=== PATIENT | male | born 1945 | race Caucasian/White ===

== ENCOUNTER 2017-01-01 09:56 | Day surgery (SDC) | payer OTHER ==
[~2017-01-01] VITALS: Ht 177.8 cm; Wt 99.8 kg
[~2017-01-01 09:56] MED LIST: AMOXICILLIN500 MG PO; ASPIR-TRIN325 MG PO; Aleve PO; Ambien PO; BENEFIBER1 EACH PO; CARDIZEM30 MG PO; CARTIA XT240 MG PO; CPAP; Cipro PO; DESYREL100 MG PO; DICYCLOMINE HCL20 MG PO; DILAUDID2 MG PO; ELIQUIS5 MG PO; ESSENTIAL ENZYMES PO; FLAGYL500 MG PO; FLONASE16 GM BOTH NARES; Flomax PO; IMODIUM2 MG PO; KEFLEX500 MG PO; LIORESAL10 MG PO; LISINOPRIL5 MG PO; LORAZEPAM1 MG PO; Lipitor PO; METFORMIN HCL1000 MG PO; METFORMIN HCL500 MG PO; MYSOLINE250 MG PO; OMEPRAZOLE20 M2 PO; PRILOSEC40 MG PO; Proscar PO; SIMVASTATIN20 MG PO; VITAMIN D400 UNI1 PO; VITAMIN D400 UNIT PO; VITAMIN D50000 UNI1 PO; Vitamin D PO; ZESTRIL,PRINIVIL5 MG PO; ZOCOR10 M1 PO
[2017-01-01 10:35] VITALS: BP 132/58
[2017-01-01 11:03] LABS: ANION GAP 11 MEQ/L (2-14); CHLORIDE 103 MEQ/L (99-109); POTASSIUM 4.1 MEQ/L (3.7-5.4); SAMPLE HEMOLYSIS CHECK 0; SAMPLE ICTERIC CHECK 0; SAMPLE LIPEMIA CHECK 0; SODIUM 138 MEQ/L (136-147)
[2017-01-01 11:08] LABS: GFR ESTIMATE (CALCULATED) > 59 mL/min/; GLUCOSE 117 mg/dL (70-99); UREA NITROGEN (BUN) 24 mg/dL (9-23)
[2017-01-01 14:00] LABS: POINT-OF-CARE METER ID UU13113675
[2017-01-01 15:00] VITALS: BP 117/57
[2017-01-01 15:51] VITALS: BP 133/63
== END 2017-01-01 16:04 | disposition home or self-care (01) ==
LOC: SDC 09:56
PROVIDERS: Internal Medicine
DX: H35.342 Macular cyst, hole, or pseudohole, left eye (principal); H33.002 Unspecified retinal detachment with retinal break, left eye; I48.0 Paroxysmal atrial fibrillation; G91.2 (Idiopathic) normal pressure hydrocephalus; I11.9 Hypertensive heart disease without heart failure; E78.2 Mixed hyperlipidemia; G47.33 Obstructive sleep apnea (adult) (pediatric); E11.9 Type 2 diabetes mellitus without complications; E66.9 Obesity, unspecified; Z68.32 Body mass index [BMI] 32.0-32.9, adult; Z79.01 Long term (current) use of anticoagulants
CPT/HCPCS: 80048; 82948; J0690; J3010; J3300

== ENCOUNTER 2017-08-25 02:19 | Observation (INO) | payer OTHER ==
[~2017-08-25] VITALS: Ht 177.8 cm; Wt 106.5 kg
[2017-08-25 02:56] LABS: ADD MIUA? YES; BILIRUBIN NEGATIVE; BLOOD NEGATIVE; COLOR YELLOW ((YELLOW)); GLUCOSE (STRIP) NEGATIVE; KETONES NEGATIVE; LEUKOCYTES TRACE; NITRITE NEGATIVE; PROTEIN (STRIP) 30; SPECIFIC GRAVITY 1.021 (1.000-1.030)
[2017-08-25 02:57] LABS: HEMATOCRIT 43.2 % (38.0-50.0); MCH 29.1 PG (29.0-34.0); MCHC 32.9 G/DL (30.0-36.0); MCV 88.5 FL (86-99); MEAN PLAT.VOLUME 10.6 uM^3 (9.0-12.4); PLATELET COUNT 243 K/uL (156-360); RBC DIS.WIDTH-CV 13.5 % (11.8-14.6); RBC DIS.WIDTH-SD 43.7 % (39-53); RED BLOOD COUNT 4.88 M/uL (4.00-5.50); WHITE BLOOD COUNT 10.6 K/uL (4.1-10.2)
[2017-08-25 03:10] LABS: BACTERIA RARE /HPF; EPITHELIAL CELLS RARE /HPF; MUCUS NONE SEEN /LPF; RED BLOOD CELLS 0-5 /HPF (0-5); UCUL ADDED? NO; WHITE BLOOD CELLS 0-5 /HPF (0-5)
[2017-08-25 03:13] LABS: CHLORIDE 108 mEq/L (99-109); POTASSIUM 3.7 mEq/L (3.7-5.4); SODIUM 146 mEq/L (136-147)
[2017-08-25 03:15] LABS: GLUCOSE 144 mg/dL (70-99)
[2017-08-25 03:16] LABS: ANION GAP 13 MEQ/L (2-14)
[2017-08-25 03:17] LABS: TOTAL BILIRUBIN 0.5 mg/dL (0.0-1.0); TROP-I INTERPRETATION NEGATIVE; TROPONIN-I < 0.01 ng/mL (0.0-0.30)
[2017-08-25 03:18] LABS: ALKALINE PHOSPHATASE 92 IU/L (3-129)
[2017-08-25 03:19] LABS: GFR ESTIMATE (CALCULATED) > 59 mL/min/
[2017-08-25 03:20] LABS: UREA NITROGEN (BUN) 18 mg/dL (9-23)
[2017-08-25 03:22] LABS: LIPASE 29 U/L (1.0-51.0)
[2017-08-25] MEDS ORDERED: LIPITOR20 MG PO (05:08)
[2017-08-25] MEDS ORDERED: PAROXETINE HCL20 MG PO (05:08)
[2017-08-25] MEDS ORDERED: CARDIZEM CD,CA240 MG PO (05:08)
[2017-08-25 07:25] VITALS: BP 137/87
[2017-08-25 10:23] LABS: TROP-I INTERPRETATION NEGATIVE; TROPONIN-I < 0.01 ng/mL (0.0-0.30)
[2017-08-25 10:27] LABS: HDL CHOLESTEROL 34 MG/DL (Desirable>=40); LDL CHOLESTEROL 36 mg/dL (Desirable<100); NON-HDL CHOLESTEROL 49 mg/dL (Desirable<160); TOTAL CHOLESTEROL 83 mg/dL (Desirable<200); TRIGLYCERIDES 65 MG/DL (Normal: <150)
[2017-08-25 13:14] VITALS: BP 157/76
[2017-08-25 16:02] LABS: TROP-I INTERPRETATION NEGATIVE; TROPONIN-I < 0.01 ng/mL (0.0-0.30)
[2017-08-25 17:51] LABS: POINT-OF-CARE METER ID UU13113831
== END 2017-08-25 18:24 | disposition home or self-care (01) ==
LOC: EME 02:19 → EDOF 05:16 → ENRESERV 05:20 → 5WEST 07:12
PROVIDERS: Internal Medicine; Physician Assistant; Physician Assistant Medical
DX: R10.13 Epigastric pain (principal); I48.0 Paroxysmal atrial fibrillation; N40.1 Benign prostatic hyperplasia with lower urinary tract symptoms; N13.8 Other obstructive and reflux uropathy; T84.54XD Infection and inflammatory reaction due to internal left knee prosthesis, subsequent encounter; Y83.1 Surgical operation with implant of artificial internal device as the cause of abnormal reaction of the patient, or of later complication, without mention of misadventure at the time of the procedure; I10 Essential (primary) hypertension; E78.5 Hyperlipidemia, unspecified; E11.9 Type 2 diabetes mellitus without complications; K21.9 Gastro-esophageal reflux disease without esophagitis; L40.50 Arthropathic psoriasis, unspecified; G91.2 (Idiopathic) normal pressure hydrocephalus; R13.10 Dysphagia, unspecified; E66.9 Obesity, unspecified; Z68.33 Body mass index [BMI] 33.0-33.9, adult; M19.90 Unspecified osteoarthritis, unspecified site; K58.1 Irritable bowel syndrome with constipation; E56.0 Deficiency of vitamin E; G47.33 Obstructive sleep apnea (adult) (pediatric); F41.0 Panic disorder [episodic paroxysmal anxiety]; F32.9 Major depressive disorder, single episode, unspecified; F03.90 Unspecified dementia, unspecified severity, without behavioral disturbance, psychotic disturbance, mood disturbance, and anxiety; Z91.19 Patient's noncompliance with other medical treatment and regimen; Z79.01 Long term (current) use of anticoagulants; Z79.84 Long term (current) use of oral hypoglycemic drugs; Z98.2 Presence of cerebrospinal fluid drainage device; Z87.891 Personal history of nicotine dependence
CPT/HCPCS: 71020; 74177; 80053; 80061; 81003; 82948; 83690; 84484; 85027; 93005; 99281; 99285; G0378; J2405; J7040

== ENCOUNTER 2017-11-26 21:56 | Inpatient (IN) | payer OTHER ==
[~2017-11-26] VITALS: Ht 177.8 cm; Wt 103.2 kg
[~2017-11-26 21:56] MED LIST changes: +CARDIZEM CD,CA240 MG PO; +DESYREL 150 MG150 MG PO; -DESYREL100 MG PO; +LIPITOR20 MG PO; +PAROXETINE HCL20 MG PO
[2017-11-26 23:39] LABS: HEMATOCRIT 47.5 % (38.0-50.0); MCH 30.1 PG (29.0-34.0); MCHC 33.7 G/DL (30.0-36.0); MCV 89.5 FL (86-99); PLATELET COUNT 254 K/uL (156-360); RBC DIS.WIDTH-CV 12.6 % (11.8-14.6); RBC DIS.WIDTH-SD 41.2 % (39-53); RED BLOOD COUNT 5.31 M/uL (4.00-5.50); WHITE BLOOD COUNT 8.1 K/uL (4.1-10.2)
[2017-11-26 23:50] LABS: CHLORIDE 103 mEq/L (99-109); POTASSIUM 3.9 mEq/L (3.7-5.4); SODIUM 135 mEq/L (136-147)
[2017-11-26 23:52] LABS: GLUCOSE 134 mg/dL (70-99)
[2017-11-26 23:56] LABS: GFR ESTIMATE (CALCULATED) > 59 mL/min/ (58.99-99999)
[2017-11-26 23:57] LABS: UREA NITROGEN (BUN) 20 mg/dL (9-23)
[2017-11-27 00:14] LABS: BASOPHIL (%) 0.5 % (0-1); EOSINOPHIL (%) 0.7 % (0-5); EOSINOPHIL COUNT 0.1 K/uL (0-0.3); HEMATOCRIT 48.6 % (38.0-50.0); HEMOGLOBIN 16.1 G/DL (12.5-16.6); IMMATURE GRANULOCYTE (%) 0.4 % (0.0-0.7); LYMPHOCYTE (%) 10.9 % (15-42); LYMPHOCYTE COUNT 0.9 K/uL (1.0-2.8); MCH 29.5 PG (29.0-34.0); MCHC 33.1 G/DL (30.0-36.0); MCV 89.2 FL (86-99); MONOCYTE (%) 11.6 % (3-12); MONOCYTE COUNT 0.9 K/uL (0-0.8); NEUTROPHIL (%) 75.9 % (45-76); NEUTROPHIL COUNT 6.2 K/uL (1.8-6.4); RBC DIS.WIDTH-CV 12.6 % (11.8-14.6); RBC DIS.WIDTH-SD 41.5 % (39-53); RED BLOOD COUNT 5.45 M/uL (4.00-5.50); WHITE BLOOD COUNT 8.1 K/uL (4.1-10.2)
[2017-11-27 01:00] LABS: PLAT.SUFFICIENCY ADEQUATE; PLATELET COUNT 209 K/uL (156-360)
[2017-11-27 01:05] LABS: TROP-I INTERPRETATION NEGATIVE; TROPONIN-I < 0.01 ng/mL (0.0-0.30)
[2017-11-27 02:51] LABS: APPEARANCE CLEAR ((CLEAR)); BILIRUBIN NEGATIVE; BLOOD SMALL; COLOR YELLOW ((YELLOW)); GLUCOSE (STRIP) NEGATIVE; KETONES NEGATIVE; LEUKOCYTES NEGATIVE; NITRITE NEGATIVE; PROTEIN (STRIP) 100; SPECIFIC GRAVITY 1.023 (1.000-1.030); UROBILINOGEN 0.2 MG/DL (0.2-1.0)
[2017-11-27 02:54] LABS: BACTERIA NONE SEEN /HPF; EPITHELIAL CELLS NONE SEEN /HPF; MUCUS TRACE /LPF; RED BLOOD CELLS 0-5 /HPF (0-5); UCUL ADDED? NO; WHITE BLOOD CELLS 0-5 /HPF (0-5)
[2017-11-27] MEDS ORDERED: ATORVASTATIN CA20 MG PO (09:20)
[2017-11-27] MEDS ORDERED: AUGMENTIN875 MG PO (09:22)
[2017-11-27] MEDS ORDERED: AMOX TR-K CLV1 EAC4 PO (09:23)
[2017-11-27] MEDS ORDERED: CODEINE-GUAIFE120 ML PO (09:23)
[2017-11-27] MEDS ORDERED: ONDANSETRON HCL4 MG PO (09:24)
[2017-11-27] MEDS ORDERED: VENTOLIN HFA18 GM IH (09:24)
[2017-11-27] MEDS ORDERED: TRIAMCINOLONE A15 GM TP (09:25)
[2017-11-27] MEDS ORDERED: ALEVE220 MG PO (09:26)
[2017-11-27 12:27] LABS: TROP-I INTERPRETATION NEGATIVE; TROPONIN-I < 0.01 ng/mL (0.0-0.30)
[2017-11-27 15:45] VITALS: BP 122/72
[2017-11-27 19:10] VITALS: BP 116/69
[2017-11-27 23:50] VITALS: BP 114/63
[2017-11-28 04:45] VITALS: BP 94/56
[2017-11-28 08:00] VITALS: BP 106/64
[2017-11-28 12:56] VITALS: BP 122/59
[2017-11-28 15:56] VITALS: BP 93/52
[2017-11-28 20:12] VITALS: BP 127/65
[2017-11-29 00:42] VITALS: BP 97/56
[2017-11-29 04:45] VITALS: BP 100/52
[2017-11-29 09:00] VITALS: BP 120/73
[2017-11-29 09:11] LABS: D-DIMER ELISA < 150.00 ng/mLDDU (<230)
[2017-11-29 12:00] VITALS: BP 126/71
[2017-11-29 16:00] VITALS: BP 135/66
[2017-11-29 20:45] VITALS: BP 131/78
[2017-11-30] VITALS: BP 120/78
[2017-11-30 03:23] VITALS: BP 121/78
[2017-11-30 08:17] VITALS: BP 154/78
[2017-11-30 11:45] VITALS: BP 127/72
[2017-11-30 16:45] VITALS: BP 106/53
[2017-11-30 19:26] VITALS: BP 134/88
[2017-12-01 02:04] VITALS: BP 118/78
[2017-12-01 02:05] VITALS: BP 122/78
[2017-12-01 08:01] VITALS: BP 134/84
[2017-12-01 12:17] VITALS: BP 129/81
[2017-12-01 15:46] VITALS: BP 137/84
[2017-12-01 19:10] VITALS: BP 140/79
[2017-12-02 00:20] VITALS: BP 114/65
[2017-12-02 04:30] VITALS: BP 111/65
[2017-12-02 07:39] VITALS: BP 139/86
[2017-12-02] MEDS ORDERED: PREDNISONE20 MG PO (10:09)
[2017-12-02] MEDS ORDERED: ATIVAN0.5 MG PO (10:09)
== END 2017-12-02 12:51 | disposition home or self-care (01) | DRG 308 ==
LOC: EME 21:56 → 4EAST 11-27 06:33 → EDOF 11-27 06:33 → CANRESERV 11-27 06:42 → ENRESERV 11-27 06:42 → 4EAST 11-27 14:32 → ENRESERV 11-28 20:17 → CANRESERV 11-28 20:44 → 4EAST 12-02 12:51
PROVIDERS: Emergency Medicine; Internal Medicine
DX: I48.0 Paroxysmal atrial fibrillation (principal); I48.2 Chronic atrial fibrillation; J10.08 Influenza due to other identified influenza virus with other specified pneumonia; E86.0 Dehydration; G91.2 (Idiopathic) normal pressure hydrocephalus; J20.9 Acute bronchitis, unspecified; J44.0 Chronic obstructive pulmonary disease with (acute) lower respiratory infection; J44.1 Chronic obstructive pulmonary disease with (acute) exacerbation; E66.9 Obesity, unspecified; R09.02 Hypoxemia; E78.5 Hyperlipidemia, unspecified; F41.9 Anxiety disorder, unspecified; I10 Essential (primary) hypertension; K21.9 Gastro-esophageal reflux disease without esophagitis; E11.9 Type 2 diabetes mellitus without complications; G47.33 Obstructive sleep apnea (adult) (pediatric); F32.9 Major depressive disorder, single episode, unspecified; F60.9 Personality disorder, unspecified; H35.30 Unspecified macular degeneration; Z88.6 Allergy status to analgesic agent; Z91.013 Allergy to seafood; Z68.33 Body mass index [BMI] 33.0-33.9, adult; Z82.49 Family history of ischemic heart disease and other diseases of the circulatory system; Z98.2 Presence of cerebrospinal fluid drainage device; Z87.891 Personal history of nicotine dependence; Z80.7 Family history of other malignant neoplasms of lymphoid, hematopoietic and related tissues
CPT/HCPCS: 71046; 80048; 81003; 82948; 83605; 83880; 84484; 85025; 85027; 85379; 87040; 87502; 93005; 94640; 94640 76; 94667; 94760; 94799; 99202; 99281; 99285; J0456; J1100; J1160; J1956; J2920; J7512

== ENCOUNTER 2018-02-21 18:41 | Inpatient (IN) | payer OTHER ==
[~2018-02-21] VITALS: Ht 177.8 cm; Wt 100.9 kg
[~2018-02-21 18:41] MED LIST changes: +ALEVE220 MG PO; +AMOX TR-K CLV1 EAC4 PO; +ATIVAN0.5 MG PO; +AUGMENTIN875 MG PO; -CARTIA XT240 MG PO; +CODEINE-GUAIFE120 ML PO; -ELIQUIS5 MG PO; -LIORESAL10 MG PO; -METFORMIN HCL500 MG PO; +ONDANSETRON HCL4 MG PO; +PREDNISONE20 MG PO; +TRIAMCINOLONE A15 GM TP; +VENTOLIN HFA18 GM IH; -VITAMIN D400 UNIT PO
[2018-02-21 19:34] LABS: HEMATOCRIT 49.6 % (38.0-50.0); HEMOGLOBIN 16.8 G/DL (12.5-16.6); MCH 29.8 PG (29.0-34.0); MCHC 33.9 G/DL (30.0-36.0); MCV 88.1 FL (86-99); PLATELET COUNT 322 K/uL (156-360); RBC DIS.WIDTH-CV 13.2 % (11.8-14.6); RBC DIS.WIDTH-SD 42.5 % (39-53); RED BLOOD COUNT 5.63 M/uL (4.00-5.50); WHITE BLOOD COUNT 18.5 K/uL (4.1-10.2)
[2018-02-21 19:45] LABS: CHLORIDE 107 mEq/L (99-109); SODIUM 140 mEq/L (136-147)
[2018-02-21 19:47] LABS: GLUCOSE 126 mg/dL (70-99)
[2018-02-21 19:50] LABS: GFR ESTIMATE (CALCULATED) > 59 mL/min/ (58.99-99999)
[2018-02-21 19:51] LABS: UREA NITROGEN (BUN) 16 mg/dL (9-23)
[2018-02-21 19:55] LABS: TROP-I INTERPRETATION NEGATIVE; TROPONIN-I 0.02 ng/mL (0.0-0.30)
[2018-02-21 20:39] LABS: ALBUMIN 4.3 g/dL (3.2-4.8)
[2018-02-21 20:42] LABS: TOTAL PROTEIN 7.7 g/dL (6.4-8.3)
[2018-02-21 20:44] LABS: TOTAL BILIRUBIN 1.1 mg/dL (0.0-1.0)
[2018-02-21 20:45] LABS: ALKALINE PHOSPHATASE 77 IU/L (3-129)
[2018-02-21 20:47] LABS: AST (GOT) 11 IU/L (2-34); DIRECT BILIRUBIN 0.5 mg/dL (0.0-0.3)
[2018-02-21 20:48] LABS: ALT (GPT) 10 IU/L (3-49); LIPASE 26 U/L (1.0-51.0)
[2018-02-21 21:59] LABS: APPEARANCE SL.HAZY ((CLEAR)); BILIRUBIN NEGATIVE; BLOOD NEGATIVE; COLOR AMBER ((YELLOW)); GLUCOSE (STRIP) NEGATIVE; KETONES NEGATIVE; LEUKOCYTES TRACE; NITRITE NEGATIVE; PROTEIN (STRIP) 100; SPECIFIC GRAVITY 1.027 (1.000-1.030)
[2018-02-21 22:23] LABS: BACTERIA NONE SEEN /HPF; CALCIUM OXALATE CRYSTALS 1+ /HPF; EPITHELIAL CELLS RARE /HPF; MUCUS NONE SEEN /LPF; RED BLOOD CELLS 0-5 /HPF (0-5); WHITE BLOOD CELLS 0-5 /HPF (0-5)
[2018-02-21 23:43] LABS: CARBON DIOXIDE (BICARBONATE) 27.3 MEQ/L (20-31)
[2018-02-22 02:03] VITALS: BP 110/59
[2018-02-22 03:52] VITALS: BP 95/46
[2018-02-22 08:19] VITALS: BP 98/58
[2018-02-22 11:57] VITALS: BP 109/92
[2018-02-22] MEDS ORDERED: ALPRAZOLAM0.5 MG PO (11:59)
[2018-02-22] MEDS ORDERED: TRAZODONE HCL150 MG PO (12:00)
[2018-02-22] MEDS ORDERED: METFORMIN HCL1000 MG PO ×2 (12:00→12:10)
[2018-02-22] MEDS ORDERED: TRIAMCINOLONE A15 GM TP (12:00)
[2018-02-22] MEDS ORDERED: VENTOLIN HFA18 GM IH (12:01)
[2018-02-22] MEDS ORDERED: CARTIA XT240 MG PO (12:10)
[2018-02-22] MEDS ORDERED: ELIQUIS5 MG PO (12:11)
[2018-02-22] MEDS ORDERED: ATORVASTATIN CA40 MG PO (12:11)
[2018-02-22] MEDS ORDERED: LIORESAL10 MG PO (12:11)
[2018-02-22] MEDS ORDERED: VITAMIN D2000 UNIT PO (12:11)
[2018-02-22] MEDS ORDERED: AMOXICILLIN500 M1 PO (12:22)
[2018-02-22 16:05] VITALS: BP 93/56
[2018-02-22 19:12] VITALS: BP 94/54
[2018-02-23] VITALS (7 sets, daily range): BP systolic 109–145; BP diastolic 59–89
[2018-02-23 06:02] LABS: BASOPHIL (%) 0.7 % (0-1); BASOPHIL COUNT 0.1 K/uL (0-0.1); EOSINOPHIL (%) 2.1 % (0-5); EOSINOPHIL COUNT 0.2 K/uL (0-0.3); HEMATOCRIT 41.1 % (38.0-50.0); IMMATURE GRANULOCYTE (%) 0.2 % (0.0-0.7); LYMPHOCYTE (%) 22.9 % (15-42); LYMPHOCYTE COUNT 2.2 K/uL (1.0-2.8); MCH 29.8 PG (29.0-34.0); MCHC 32.6 G/DL (30.0-36.0); MCV 91.3 FL (86-99); MONOCYTE (%) 10.5 % (3-12); NEUTROPHIL (%) 63.6 % (45-76); PLATELET COUNT 226 K/uL (156-360); RBC DIS.WIDTH-CV 13.2 % (11.8-14.6); RBC DIS.WIDTH-SD 44.3 % (39-53); WHITE BLOOD COUNT 9.4 K/uL (4.1-10.2)
[2018-02-23 06:05] LABS: HEMOGLOBIN 13.4 G/DL (12.5-16.6)
[2018-02-23 06:27] LABS: ALBUMIN 3.2 G/DL (3.2-4.8); ALKALINE PHOSPHATASE 45 IU/L (3-129); ALT (GPT) 6 IU/L (3-49); AST (GOT) 7 IU/L (2-34); CHLORIDE 109 MEQ/L (99-109); CREATININE 0.8 MG/DL (0.6-1.3); GFR ESTIMATE (CALCULATED) > 59 mL/min/ (58.99-99999); POTASSIUM 4.4 MEQ/L (3.7-5.4); SODIUM 144 MEQ/L (136-147); TOTAL BILIRUBIN 1.1 MG/DL (0.0-1.0); TOTAL PROTEIN 5.3 G/DL (6.4-8.3); UREA NITROGEN (BUN) 7 mg/dL (9-23)
[2018-02-23 06:28] LABS: GLUCOSE 87 mg/dL (70-99)
[2018-02-24 08:00] VITALS: BP 133/79
[2018-02-24 12:03] VITALS: BP 138/81
[2018-02-24 16:24] VITALS: BP 106/58
[2018-02-24 21:57] VITALS: BP 110/54
[2018-02-24 23:29] VITALS: BP 113/56
[2018-02-25 06:20] LABS: CREATININE 0.9 MG/DL (0.6-1.3); GFR ESTIMATE (CALCULATED) > 59 mL/min/ (58.99-99999); UREA NITROGEN (BUN) 8 mg/dL (9-23)
[2018-02-25 07:54] VITALS: BP 142/83
[2018-02-25] MEDS ORDERED: FLAGYL500 MG PO (15:56)
[2018-02-25] MEDS ORDERED: CIPRO500 MG PO (15:56)
[2018-02-25] MEDS ORDERED: LOPRESSOR50 MG PO (16:06)
== END 2018-02-25 19:16 | disposition home or self-care (01) | DRG 392 ==
LOC: EME 18:41 → EDOF 23:45 → 3EAST 23:45 → ENRESERV 02-22 00:16 → 3EAST 02-22 01:39
PROVIDERS: Internal Medicine; Physician Assistant
DX: K57.32 Diverticulitis of large intestine without perforation or abscess without bleeding (principal); K59.00 Constipation, unspecified; I71.2 Thoracic aortic aneurysm, without rupture; J98.11 Atelectasis; K80.20 Calculus of gallbladder without cholecystitis without obstruction; I48.2 Chronic atrial fibrillation; N28.1 Cyst of kidney, acquired; G47.33 Obstructive sleep apnea (adult) (pediatric); E11.9 Type 2 diabetes mellitus without complications; F32.9 Major depressive disorder, single episode, unspecified; K21.9 Gastro-esophageal reflux disease without esophagitis; D72.829 Elevated white blood cell count, unspecified; I25.10 Atherosclerotic heart disease of native coronary artery without angina pectoris; E66.9 Obesity, unspecified; I10 Essential (primary) hypertension; Z68.31 Body mass index [BMI] 31.0-31.9, adult; Z98.2 Presence of cerebrospinal fluid drainage device; Z96.653 Presence of artificial knee joint, bilateral; Z82.49 Family history of ischemic heart disease and other diseases of the circulatory system; Z80.7 Family history of other malignant neoplasms of lymphoid, hematopoietic and related tissues
CPT/HCPCS: 71046; 71275; 74177; 80048; 80053; 80076; 81003; 82565; 82803; 82948; 83605; 83690; 84484; 84520; 85025; 85027; 87040; 93005; 99202; 99281; 99285; J1170; J1815; J2405; J2543; J3010; J7030; J7050; J7120